=== PATIENT | male | born 1985 | race African-American/Black ===

== ENCOUNTER 2016-11-20 09:26 | Emergency (ER) | payer OTHER ==
--- NOTE | 2016-11-20 11:11 | ER Document Report ---
ED General - General Chief Complaint: Abdominal Pain Stated Complaint: ABDOMINAL PAIN Mode of Arrival: Ambulatory Information source: Patient TRAVEL OUTSIDE OF THE [place] IN LAST 30 DAYS: No - HPI Notes: Patient presents with report of recurrence of a discharge and some pain through the right inguinal region. He reports a history of a right inguinal hernia surgical repair last year with Dr. Chapman. Patient denies any fever or chills or nausea or vomiting. No dysuria. - Related Data Allergies/Adverse Reactions: No Known Allergies Allergy (Verified 11/20/16 09:32) Past Medical History - Social History Smoking Status: Current Every Day Smoker Chew tobacco use (# tins/day): No Frequency of alcohol use: Occasional Drug Abuse: None Family History: Reviewed & Not Pertinent Patient has suicidal ideation: No Patient has homicidal ideation: No Pulmonary Medical History: Reports: Hx COPD, Hx Pneumonia Endocrine Medical History: Denies: Hx Diabetes Mellitus Type 2 Renal/ Medical History: Denies: Hx Peritoneal Dialysis GI Medical History: Denies: Hx Gastritis, Hx Gastroesophageal Reflux Disease - Immunizations Hx Diphtheria, Pertussis, Tetanus Vaccination: Yes Review of Systems - Review of Systems Notes: REVIEW OF SYSTEMS: CONSTITUTIONAL : Denies fever, chills, or sweats. Denies recent illness. EENT: Denies eye, ear, throat, or mouth pain or symptoms. Denies nasal or sinus congestion or discharge. Denies throat, tongue, or mouth swelling or difficulty swallowing. CARDIOVASCULAR: Denies chest pain. Denies palpitations or racing or irregular heart beat. Denies ankle edema. RESPIRATORY: Denies cough, cold, or chest congestion. Denies shortness of breath, difficulty breathing, or wheezing. GASTROINTESTINAL: No diarrhea. Denies blood in vomitus, stools, or per rectum. Denies black, tarry stools. Denies constipation. Patient had nausea and vomited twice without blood. He describes the pain as right inguinal location with bulging. GENITOURINARY: Denies difficulty urinating, painful urination, burning, frequency, blood in urine, or discharge. MUSCULOSKELETAL: Denies back or neck pain or stiffness. Denies joint pain or swelling. SKIN: Denies rash, lesions or sores. HEMATOLOGIC : Denies easy bruising or bleeding. LYMPHATIC: Denies swollen, enlarged glands. NEUROLOGICAL: Denies confusion or altered mental status. Denies passing out or loss of consciousness. Denies dizziness or lightheadedness. Denies headache. Denies weakness or paralysis or loss of use of either side. Denies problems with gait or speech. Denies sensory loss, numbness, or tingling. Denies seizures. PSYCHIATRIC: Denies anxiety or stress. Denies depression, suicidal ideation, or homicidal ideation. ALL OTHER SYSTEMS REVIEWED AND NEGATIVE. Dictation was performed using peerTransfer voice recognition software Physical Exam - Vital signs Vitals: Temp Pulse Resp BP Pulse Ox 98 F 20 L 20 114/81 99 11/20/16 09:33 11/20/16 09:33 11/20/16 09:33 11/20/16 09:33 11/20/16 09:33 - Notes Notes: PHYSICAL EXAMINATION: GENERAL: Well-appearing, well-nourished and in no acute distress. HEAD: Atraumatic, normocephalic. EYES: Left corneal opacification chronic from old injury, extraocular movements intact, sclera anicteric, conjunctiva are normal. ENT: Nares patent, oropharynx clear without exudates. Moist mucous membranes. NECK: Normal range of motion, supple without lymphadenopathy LUNGS: Breath sounds clear to auscultation bilaterally and equal. No wheezes rales or rhonchi. HEART: Regular rate and rhythm without murmurs ABDOMEN: Tender through the right inguinal fold where there appears to be a indirect hernia with some bulging. This was easily reduced on exam with the patient laying down flat and his pain subsided after reduction. Genitourinary exam: No testicular torsion or mass or testicular tenderness. Musculoskeletal: Normal range of motion, no pitting or edema. No cyanosis. NEUROLOGICAL: Cranial nerves grossly intact. Normal speech, normal gait. Normal sensory, motor exams PSYCH: Normal mood, normal affect. SKIN: Warm, Dry, normal turgor, no rashes or lesions noted. Course - Re-evaluation Re-evalutation: 11/20/16 11:08 Repeat evaluation no recurrence of hernia. No pain. No further nausea. Discussion was undertaken with Dr. Chapman who agreed to see the pt in clinic for f/u. 11/20/16 11:09 - Vital Signs Vital signs: Temp Pulse Resp BP Pulse Ox 98 F 20 L 20 114/81 99 11/20/16 09:33 11/20/16 09:33 11/20/16 09:33 11/20/16 09:33 11/20/16 09:33 Discharge - Discharge Clinical Impression: Recurrent inguinal hernia of left side without obstruction or gangrene Condition: Stable Disposition: HOME, SELF-CARE Instructions: Abdominal Pain ([facility]) Additional Instructions: If hernia recurs, then laid down and gently push the hernia back in until pain is resolved. If you're unable to reduce the hernia back into the location and resolved the pain, then you need to come in to the emergency department immediately. Prescriptions: Hydrocodone/Acetaminophen [Cabot 5-325 Tablet] 1 each PO Q4HP PRN #20 tablet PRN Reason: Ondansetron [Zofran Odt 4 mg Tablet] 1 - 2 tab PO Q8HP PRN #10 tab.rapdis PRN Reason: For Nausea/Vomiting Naproxen [Naprosyn 375 Mg Tablet] 375 mg PO BIDP PRN #30 tablet PRN Reason: Forms: Return to Work, Special Work Note Referrals: MONTY CHAPMAN MD [ACTIVE STAFF] - Follow up as needed
[2016-11-20 11:56] VITALS: BP 117/79
== END 2016-11-20 11:40 | disposition home or self-care (01) ==
LOC: ER 09:26
DX: K40.41 Unilateral inguinal hernia, with gangrene, recurrent (principal); F17.200 Nicotine dependence, unspecified, uncomplicated; J44.9 Chronic obstructive pulmonary disease, unspecified
CPT/HCPCS: 99283

== ENCOUNTER 2018-05-07 11:25 | Emergency (ER) | payer SELFPAY ==
--- NOTE | 2018-05-07 12:44 | ER Document Report ---
ED GI/ - General Chief Complaint: Groin Pain Stated Complaint: RIGHT GROIN PAIN Time Seen by Provider: 05/07/18 12:44 Mode of Arrival: Medic Information source: Law Enforcement Notes: 32-year-old male came in by EMS from work after having a hard on reducible right inguinal hernia between 8 and 11 or so at work today after lifting 40 pounds to put it on a shelf. It was bulging prior to the lifting because he strained to have a bowel movement. It is now back to normal. He was given fentanyl IV on the ambulance. He is seen Dr. Chapman in the past and since it was not strangulated it was an elective surgery and is trying to work as much as he can so he can get the weeks off in order to get the surgery. TRAVEL OUTSIDE OF THE [place] IN LAST 30 DAYS: No - Related Data Allergies/Adverse Reactions: No Known Allergies Allergy (Verified 05/07/18 11:28) Past Medical History - General Information source: Patient - Social History Smoking Status: Current Every Day Smoker Chew tobacco use (# tins/day): No Frequency of alcohol use: Occasional Drug Abuse: None Lives with: Family Family History: Reviewed & Not Pertinent Patient has suicidal ideation: No Patient has homicidal ideation: No Pulmonary Medical History: Reports: Hx COPD, Hx Pneumonia GI Medical History: Reports: Other - Right inguinal hernia Surgical Hx: Negative - Immunizations Hx Diphtheria, Pertussis, Tetanus Vaccination: Yes Review of Systems - Review of Systems Constitutional: No symptoms reported EENT: No symptoms reported Cardiovascular: No symptoms reported Respiratory: No symptoms reported Gastrointestinal: See HPI Genitourinary: No symptoms reported Male Genitourinary: No symptoms reported Musculoskeletal: No symptoms reported Skin: No symptoms reported Hematologic/Lymphatic: No symptoms reported Neurological/Psychological: No symptoms reported Physical Exam - Vital signs Vitals: Temp Pulse Resp BP Pulse Ox 97.8 F 58 L 16 127/89 H 96 05/07/18 11:32 05/07/18 11:32 05/07/18 11:32 05/07/18 11:32 05/07/18 11:32 Interpretation: Normal - General General appearance: Appears well, Alert - HEENT Head: Normocephalic, Atraumatic Eyes: Normal Pupils: PERRL - Respiratory Respiratory status: No respiratory distress Chest status: Nontender Breath sounds: Normal Chest palpation: Normal - Cardiovascular Rhythm: Regular Heart sounds: Normal auscultation Murmur: No - Abdominal Inspection: Normal Distension: No distension Bowel sounds: Normal Tenderness: Tender - Minimal tender over reducible soft right inguinal hernia. Active bowel sounds. I had him stand at the bedside and there was no increase in the bulge. Organomegaly: No organomegaly - Back Back: Normal, Nontender - Extremities General upper extremity: Normal inspection, Nontender, Normal color, Normal ROM , Normal temperature General lower extremity: Normal inspection, Nontender, Normal color, Normal ROM , Normal temperature, Normal weight bearing. No: Julia's sign - Neurological Neuro grossly intact: Yes Cognition: Normal Orientation: AAOx4 [place] Coma Scale Eye Opening: Spontaneous [place] Coma Scale Verbal: Oriented [place] Coma Scale Motor: Obeys Commands [place] Coma Scale Total: 15 Speech: Normal Motor strength normal: LUE, RUE, LLE, RLE Sensory: Normal - Psychological Associated symptoms: Normal affect, Normal mood - Skin Skin Temperature: Warm Skin Moisture: Dry Skin Color: Normal Course - Vital Signs Vital signs: Temp Pulse Resp BP Pulse Ox 97.8 F 58 L 16 127/89 H 96 05/07/18 11:32 05/07/18 11:32 05/07/18 11:32 05/07/18 11:32 05/07/18 11:32 Discharge - Discharge Clinical Impression: Reducible right inguinal hernia Condition: Good Disposition: HOME, SELF-CARE Instructions: Hernia ([facility]) Additional Instructions: Call and schedule appointment with Dr. Chapman since she had this episode of hernia pain and inability to reduce while you are at work Return to the emergency room for increased pain, hernia bulging that gets hard and will not go back in, fever, any concerns at all Wear the compressive Gilberto bandage and padding to help keep it reduced Referrals: MONTY CHAPMAN MD [Primary Care Provider] - Follow up tomorrow
[2018-05-07 13:30] VITALS: BP 125/82
== END 2018-05-07 13:29 | disposition home or self-care (01) ==
LOC: ER 11:25
DX: K40.90 Unilateral inguinal hernia, without obstruction or gangrene, not specified as recurrent (principal); J44.9 Chronic obstructive pulmonary disease, unspecified; F17.200 Nicotine dependence, unspecified, uncomplicated
CPT/HCPCS: 99283

== ENCOUNTER 2018-08-16 07:56 | Day surgery (SDC) | payer BC ==
[~2018-08-16 07:56] MED LIST: ACETAMINOPHEN 1,000 MG/100 ML RTUPB IV ONE; BUPIVACAINE HCL 0.25 % INJ/PF (2.5 MG/1 ML) 30 ML VIAL ONE; CEFAZOLIN SODIUM 2 GM in DEXTROSE 5%-WATER 100 ML IV PRN; DEXAMETHASONE SOD PHOSPHATE INJ 4 MG/1 ML VIAL ONE; FENTANYL CITRATE INJ/PF 100 MCG/2 ML AMPUL ONE; IBUPROFEN 800 MG in NORMAL SALINE 250 ML IV PRN; LIDOCAINE 2% INJ-PF (20 MG/ML) 10 ML AMPUL ONE; MIDAZOLAM 2 MG/2 ML INJ ONE; ONDANSETRON HCL INJ/PF 4 MG/2 ML SDV ONE; PROPOFOL INJ 200 MG/20 ML VIAL IV ONE
[2018-08-16] MEDS ORDERED: CEFAZOLIN 2 GM/D5W RTU 2 GM/50 ML RTUPB IV ONE (08:10)
[2018-08-16] MEDS ORDERED: SUCCINYLCHOLINE CHLORIDE INJ 200 MG/10 ML VIAL ONE (08:17)
[2018-08-16] MEDS ORDERED: NEOSTIGMINE METHYLSULFATE 10 MG/10 ML VIAL ONE (08:17)
[2018-08-16] MEDS ORDERED: GLYCOPYRROLATE 1 MG/5 ML SYRINGE ONE (08:17)
[2018-08-16] MEDS ORDERED: ROCURONIUM BROMIDE INJ 50 MG/5 ML VIAL IV ONE (08:17)
[2018-08-16] MEDS ORDERED: ALBUTEROL SULFATE 0.083% NEB 2.5 MG/3 ML AMPUL NEB ONE (08:34)
[2018-08-16 09:07] LABS: HEMATOCRIT 41.6 % (37.9-51.0); HEMOGLOBIN 14.4 g/dL (13.5-17.0); MEAN CORPUSCULAR HEMOGLOBIN 32.5 pg (27.0-33.4); MEAN CORPUSCULAR HGB CONC 34.7 g/dL (32.0-36.0); MEAN CORPUSCULAR VOLUME 94 fl (80-97); PLATELET COUNT 189 10^3/uL (150-450); RED BLOOD COUNT 4.43 10^6/uL (4.35-5.55); RED CELL DISTRIBUTION WIDTH 14.4 % (11.5-14.0); WHITE BLOOD COUNT 5.6 10^3/uL (4.0-10.5)
[2018-08-16 09:11] LABS: ANION GAP 9 (5-19); BLOOD UREA NITROGEN 12 mg/dL (7-20); CALCIUM 9.1 mg/dL (8.4-10.2); CARBON DIOXIDE 29 mmol/L (22-30); CHLORIDE 105 mmol/L (98-107); GLUCOSE 101 mg/dL (75-110); SODIUM 142.7 mmol/L (137-145)
[2018-08-16] MEDS ORDERED: DIPHENHYDRAMINE HCL 50 MG/ML VIAL IV PRN ×2 (11:03→14:28)
[2018-08-16] MEDS ORDERED: FENTANYL CITRATE INJ/PF 100 MCG/2 ML AMPUL IV PRN ×5 (11:03→14:28)
[2018-08-16] MEDS ORDERED: MORPHINE SULFATE 10 MG/ML INJ IV PRN ×2 (11:03→14:28)
[2018-08-16] MEDS ORDERED: PROMETHAZINE HCL INJ 25 MG/1 ML VIAL IV PRN ×4 (11:03→14:28)
[2018-08-16] MEDS ORDERED: ONDANSETRON HCL INJ/PF 4 MG/2 ML SDV IV PRN ×2 (11:03→14:28)
[2018-08-16] MEDS ORDERED: MEPERIDINE HCL/PF INJ 25 MG/1 ML DISP.SYRIN IV PRN ×2 (11:03→14:28)
[2018-08-16] MEDS ORDERED: METOCLOPRAMIDE HCL INJ/PF 10 MG/2 ML SDV ONE (14:36)
[2018-08-16] MEDS ORDERED: FENTANYL CITRATE INJ/PF 100 MCG/2 ML AMPUL ONE (14:49)
[2018-08-16] MEDS: FENTANYL CITRATE INJ/PF 100 MCG/2 ML AMPUL IV PRN ×2 (14:50→15:00)
--- NOTE | 2018-08-16 15:53 | Discharge Summary ---
Discharge Summary ([facility]) - Discharge Final Diagnosis: #1 Amyand and hernia. #2 indirect left inguinal hernia Date of Surgery: 08/16/18 Discharge Date: 08/16/18 Condition: Stable Treatment or Instructions: Discharge home. Diet as tolerated. Activity: No lifting greater than 10 pounds x 4 weeks. Follow-up with me in 7-10 days. Alexander 10/325 mg p.o. every 6 hours as needed for pain. Okay to shower on Sunday. No tub baths times 2 weeks. Discharge Diet: As Tolerated Respiratory Treatments at Home: Deep Breathing/Coughing, Incentive Spirometer Discharge Activity: No Lifting Over 10 Pounds Home Care Assistance: None Needed Report the Following to Your Physician Immediately: Shortness of Breath, Nausea , Vomiting, Increase in Pain, Fever over 101 Degrees, Unusual Bleeding, Redness
--- NOTE | 2018-08-16 16:14 | Operative Report ---
Nonrecallable Operative Report DATE OF SURGERY: 08/16/18 PREOPERATIVE DIAGNOSIS: Bilateral inguinal hernia. POSTOPERATIVE DIAGNOSIS: 1. Amyand hernia on the right. 2. Indirect left inguinal hernia. OPERATION: 1. Robot-assisted bilateral laparoscopic inguinal hernia repair with mesh. 2. Robot-assisted laparoscopic appendectomy. SURGEON: ILIANA PARKER 1ST RESIDENTIAL FINISH CARPENTER: MARSHA SCHULTE ANESTHESIA: GA TISSUE REMOVED OR ALTERED: Appendix COMPLICATIONS: Appendix involved within an indirect right inguinal hernia, necessitating removal of the appendix. ESTIMATED BLOOD LOSS: Minimal PROCEDURE: Drains/implants: Right and left large 3 DMax inguinal hernia mesh. Procedure in detail: After informed consent was obtained, the patient was brought into the operating room and laid in the supine position. The area of the abdomen was prepped and draped in a normal sterile fashion. A supraumbilical incision was created with a 15 blade scalpel, approximately 2 fingerbreadths above the umbilicus. Dissection was carried through the subcutaneous tissue using sharp and blunt means. The linea alba fascia was incised sharply, the abdomen was entered sharply. The balloon trocar was inserted, and pneumoperitoneum was achieved. 2 8 mm robotic trochars were placed in the right and left abdominal wall under direct laparoscopic visualization. The robot was then brought over the patient and docked appropriately. I then assumed my position at the surgeon's console. Attention was turned to the right groin. There was an indirect inguinal hernia defect present. An incision in the peritoneum was created 2-3 cm superior to the right inguinal hernia defect. Dissection was carried down through the preperitoneal space using sharp dissection, blunt dissection, and electrocautery. There was a dense inflammatory reaction present around the hernia sac. Dissection was very difficult. During the course of the dissection the appendix was noted to be densely adherent and intimately involved with the hernia sac. The hernia sac and appendix were completely freed from the cord structures. The appendix was then returned to the abdominal cavity. The appendix was not opened during this maneuver. Once the hernia sac was freed, a large right inguinal hernia mesh was placed into the abdomen. It was situated in the preperitoneal space. It was sutured medially and superiorly using 2-0 Vicryl suture in simple interrupted fashion. Once this was completed, the peritoneum was closed using 2-0 V lock suture in simple running fashion. Attention was then turned to the left groin. Peritoneum above the left inguinal hernia defect was opened, approximately 2-3 cm superior to the defect. Dissection was carried out in the preperitoneal space using sharp dissection, blunt dissection, and electrocautery. The hernia sac was freed from the cord structures, taking great care not to injure the cord structures. A large lipoma of the cord was reduced into the abdomen. Next , a large left-sided 3 DMax inguinal hernia mesh was placed into the preperitoneal space. It was situated over the defect, and sutured medially and superiorly. This was done with 2-0 Vicryl suture. Next, the peritoneum was sutured closed using 2-0 V lock suture in simple running fashion. Next, attention was turned to examination of the appendix. The appendix was not obviously perforated, but had several serosal tears. I was concerned for the viability of the appendix. Secondary to this, the mesoappendix was taken down bluntly. Hem-o-clementine clips were used to ligate the appendiceal artery. The appendix was then dissected free of the surrounding tissues using blunt dissection. A Hem-o-clementine clip was used at the base of the appendix. The appendix was then amputated using robotic scissors. The stump was cauterized. The robot was then undocked, and I scrubbed back into the case. Using laparoscopic instruments the appendix was placed into an Endo Catch bag and pulled out through the umbilicus. A PDS Endoloop was secured beneath the Hem-o-clementine clip at the base of the appendix. The right lower quadrant was free of any bleeding. The appendiceal stump appeared to be in good order. Next the trochars were removed, and pneumoperitoneum was relieved. The supraumbilical fascia was closed using 0 Vicryl suture in [id number] fashion. The overlying skin was closed using 4-0 Vicryl Rapide suture in subcuticular fashion. Dressings were placed, and the procedure was concluded. All sponge, instrument, and needle counts were correct x2. Addition: Stable. Marsha Schulte PA-C was scrubbed and present for the procedure. She assisted with all portions of the procedure, including insertion of the trochars, docking of the robot, changing of the robotic instruments, insertion of the mesh.
[2018-08-16 16:51] VITALS: BP 122/79
== END 2018-08-16 16:55 | disposition home or self-care (01) ==
LOC: OROUT 07:56 → EDBD 10:00 → OROUT 16:55
PROVIDERS: ATTEND Surgery
DX: K40.20 Bilateral inguinal hernia, without obstruction or gangrene, not specified as recurrent (principal); F17.210 Nicotine dependence, cigarettes, uncomplicated
CPT/HCPCS: 49650; S2900; 36415; 80048; 840; 85027; 86850; 86900; 86901; 88304; C1781; J0131; J0330; J0690; J1100; J1741; J2250; J2405; J2704; J2765; J3010; J3490; J7050

== ENCOUNTER 2019-05-23 10:29 | Emergency (ER) | payer BC ==
--- NOTE | 2019-05-23 11:27 | ER Document Report ---
ED Medical Screen (RME) - General Chief Complaint: Abdominal Pain Stated Complaint: ABDOMINAL PAIN Time Seen by Provider: 05/23/19 11:22 Mode of Arrival: Ambulatory Information source: Patient Notes: 26-year-old male presented to ED for abdominal pain just above his bellybutton. He states that he had an an umbilical hernia repair in July and this started this morning. He states he had nausea this morning but none at this time. He has a new hernia that is reducible at this time. He states the pain is still there even after I have reduced the hernia. Patient is alert oriented resp irations regular and unlabored speaking in full sentences. I have greeted and performed a rapid initial assessment of this patient. A comprehensive ED assessment and evaluation of the patient, analysis of test results and completion of medical decision making process will be conducted by an additional ED providers. TRAVEL OUTSIDE OF THE [place] IN LAST 30 DAYS: No - Related Data Allergies/Adverse Reactions: No Known Allergies Allergy (Verified 05/23/19 10:36) Past Medical History - Past Medical History Cardiac Medical History: Denies: Hx Coronary Artery Disease, Hx Heart Attack, Hx Hypertension Pulmonary Medical History: Denies: Hx Asthma, Hx Bronchitis, Hx COPD, Hx Pneumonia Neurological Medical History: Denies: Hx Cerebrovascular Accident, Hx Seizures Endocrine Medical History: Denies: Hx Diabetes Mellitus Type 2 Renal/ Medical History: Denies: Hx Peritoneal Dialysis GI Medical History: Denies: Hx Gastritis, Hx Gastroesophageal Reflux Disease Musculoskeltal Medical History: Denies Hx Arthritis - Immunizations Hx Diphtheria, Pertussis, Tetanus Vaccination: No History of Influenza Vaccine for 06/2017 - 11/2017 Season: No Physical Exam - Vital signs Vitals: Temp Pulse Resp BP Pulse Ox 97.9 F 103 H 16 124/81 98 05/23/19 10:48 05/23/19 10:48 05/23/19 10:48 05/23/19 10:48 05/23/19 10:48 Course - Vital Signs Vital signs: Temp Pulse Resp BP Pulse Ox 97.9 F 103 H 16 124/81 98 05/23/19 10:48 05/23/19 10:48 05/23/19 10:48 05/23/19 10:48 05/23/19 10:48
[2019-05-23 11:50] LABS: APPEARANCE,URINE SLIGHTLY-CLOUDY; BILIRUBIN,URINE NEGATIVE (NEGATIVE); COLOR,URINE YELLOW; GLUCOSE, URINE NEGATIVE (NEGATIVE); KETONES,URINE NEGATIVE (NEGATIVE); LEUKOCYTE ESTERASE,URINE NEGATIVE (NEGATIVE); NITRITE,URINE NEGATIVE (NEGATIVE); PROTEIN,URINE NEGATIVE (NEGATIVE); URINE SPECIFIC GRAVITY 1.011; UROBILINOGEN,URINE NEGATIVE mg/dL (<2.0)
--- NOTE | 2019-05-23 12:45 | ER Document Report ---
ED General - General Chief Complaint: Abdominal Pain Stated Complaint: ABDOMINAL PAIN Time Seen by Provider: 05/23/19 11:22 Mode of Arrival: Ambulatory TRAVEL OUTSIDE OF THE [place] IN LAST 30 DAYS: No - HPI Notes: 46 y/o w/ abdominal pain has a h/o abdominal wall hernia repaired last year no nausea/vomiting moving bowels normally he thinks his hernia returned - Related Data Allergies/Adverse Reactions: No Known Allergies Allergy (Verified 05/23/19 10:36) Past Medical History - General Information source: Patient - Social History Smoking Status: Current Every Day Smoker Frequency of alcohol use: Social Drug Abuse: None Family History: Reviewed & Not Pertinent Patient has suicidal ideation: No Patient has homicidal ideation: No - Past Medical History Cardiac Medical History: Denies: Hx Coronary Artery Disease, Hx Heart Attack, Hx Hypertension Pulmonary Medical History: Denies: Hx Asthma, Hx Bronchitis, Hx COPD, Hx Pneumonia Neurological Medical History: Denies: Hx Cerebrovascular Accident, Hx Seizures Endocrine Medical History: Denies: Hx Diabetes Mellitus Type 2 Renal/ Medical History: Denies: Hx Peritoneal Dialysis GI Medical History: Denies: Hx Gastritis, Hx Gastroesophageal Reflux Disease Musculoskeletal Medical History: Denies Hx Arthritis Past Surgical History: Reports: Hx Abdominal Surgery - Hernia repair - Immunizations Hx Diphtheria, Pertussis, Tetanus Vaccination: No Review of Systems - Review of Systems Constitutional: No symptoms reported EENT: No symptoms reported Cardiovascular: No symptoms reported Respiratory: No symptoms reported Gastrointestinal: Abdominal pain. denies: Nausea, Vomiting, Constipation Genitourinary: No symptoms reported Male Genitourinary: No symptoms reported Musculoskeletal: No symptoms reported Skin: No symptoms reported Hematologic/Lymphatic: No symptoms reported Neurological/Psychological: No symptoms reported Physical Exam - Vital signs Vitals: Temp Pulse Resp BP Pulse Ox 97.9 F 103 H 16 124/81 98 05/23/19 10:48 05/23/19 10:48 05/23/19 10:48 05/23/19 10:48 05/23/19 10:48 Interpretation: Normal - General General appearance: Appears well, Alert - HEENT Head: Normocephalic, Atraumatic Eyes: Normal Pupils: PERRL - Respiratory Respiratory status: No respiratory distress Chest status: Nontender Breath sounds: Normal Chest palpation: Normal - Cardiovascular Rhythm: Regular Heart sounds: Normal auscultation Murmur: No - Abdominal Inspection: Normal Distension: No distension Bowel sounds: Normal Tenderness: Nontender Organomegaly: No organomegaly Notes: easily reducible hernia in midline of abdomen - Back Back: Normal, Nontender - Extremities General upper extremity: Normal inspection, Nontender, Normal color, Normal ROM, Normal temperature General lower extremity: Normal inspection, Nontender, Normal color, Normal ROM, Normal temperature, Normal weight bearing. No: Julia's sign - Neurological Neuro grossly intact: Yes Cognition: Normal Orientation: AAOx4 [place] Coma Scale Eye Opening: Spontaneous [place] Coma Scale Verbal: Oriented [place] Coma Scale Motor: Obeys Commands [place] Coma Scale Total: 15 Speech: Normal Motor strength normal: LUE, RUE, LLE, RLE Sensory: Normal - Psychological Associated symptoms: Normal affect, Normal mood - Skin Skin Temperature: Warm Skin Moisture: Dry Skin Color: Normal Course - Re-evaluation Re-evalutation: 05/23/19 12:43 easily reducible hernia he needs outpt surgical follow up - Vital Signs Vital signs: Temp Pulse Resp BP Pulse Ox 97.9 F 103 H 16 124/81 98 05/23/19 10:48 05/23/19 10:48 05/23/19 10:48 05/23/19 10:48 05/23/19 10:48 - Laboratory Laboratory results interpreted by me: 05/23/19 11:30 Urine Blood SMALL H Discharge - Discharge Clinical Impression: Hernia Condition: Stable Disposition: HOME, SELF-CARE Instructions: Hernia ([facility]) Additional Instructions: follow up with your surgeon return to ED with worsening Referrals: MONTY ROBLES MD [ACTIVE STAFF] - Follow up as needed
[2019-05-23 13:11] VITALS: BP 125/75
== END 2019-05-23 13:10 | disposition home or self-care (01) ==
LOC: ER 10:29
DX: K46.9 Unspecified abdominal hernia without obstruction or gangrene (principal); R10.9 Unspecified abdominal pain; F17.200 Nicotine dependence, unspecified, uncomplicated; Z87.19 Personal history of other diseases of the digestive system
CPT/HCPCS: 81001; 99283

== ENCOUNTER 2020-02-08 23:18 | Emergency (ER) | payer BC ==
--- NOTE | 2020-02-09 | ER Document Report ---
ED Medical Screen (RME) - General Chief Complaint: Abdominal Pain Stated Complaint: LOWER ABDOMINAL PAIN Time Seen by Provider: 02/08/20 23:55 Mode of Arrival: Ambulatory Information source: Patient Notes: Patient is a 46-year-old male comes emergency room complaining of abdominal pain. Patient states that in 2018 he had a abdominal hernia repair by Dr. Chapman and was doing fine with that until last 4 months he started noticing increased pain and discomfort in the generalized area. He has not followed back up with him yet. He does a lot of heavy lifting at work and the pain is gotten to the point where he cannot stand it anymore. He is not had any problems with bowel movements or had any nausea or vomiting no fevers no diarrhea no constipation just amount of discomfort and pain hurts to walk hurts to touch it now. Physical examination: Patient is a well-nourished well-developed 46-year-old male no apparent distress on physical exam this morning however he does appear to be uncomfortable. Lungs: Bilateral breath sounds with breath sounds clear to auscultation. Cardiac: Regular rate and rhythm no new murmurs. Abdomen: Examination patient's abdomen shows that he has moderate tenderness just above the umbilicus and below the umbilicus. There is no overt hernia seen. Nothing that would signal a am incarceration or strangulation from visualization. . We will go ahead and do labs and CT with IV contrast of the abdomen and pelvis. I have greeted and performed a rapid initial assessment of this patient. A comprehensive ED assessment evaluation of the patient, analysis and test results and completion of the medical decision-making process will be conducted by an additional ED provider. TRAVEL OUTSIDE OF THE [place] IN LAST 30 DAYS: No - Related Data Allergies/Adverse Reactions: No Known Allergies Allergy (Verified 02/08/20 23:50) Past Medical History - Past Medical History Cardiac Medical History: Denies: Hx Coronary Artery Disease, Hx Heart Attack, Hx Hypertension Pulmonary Medical History: Denies: Hx Asthma, Hx Bronchitis, Hx COPD, Hx Pneumonia Neurological Medical History: Denies: Hx Cerebrovascular Accident, Hx Seizures Endocrine Medical History: Denies: Hx Diabetes Mellitus Type 2 Renal/ Medical History: Denies: Hx Peritoneal Dialysis GI Medical History: Denies: Hx Gastritis, Hx Gastroesophageal Reflux Disease Musculoskeltal Medical History: Denies Hx Arthritis Past Surgical History: Reports: Hx Abdominal Surgery - Hernia repair - Immunizations Hx Diphtheria, Pertussis, Tetanus Vaccination: No Physical Exam - Vital signs Vitals: Temp Pulse Resp BP Pulse Ox 98.6 F 82 17 129/67 H 95 02/08/20 23:37 02/08/20 23:37 02/08/20 23:37 02/08/20 23:37 02/08/20 23:37 Course - Vital Signs Vital signs: Temp Pulse Resp BP Pulse Ox 98.6 F 82 17 129/67 H 95 02/08/20 23:37 02/08/20 23:37 02/08/20 23:37 02/08/20 23:37 02/08/20 23:37
[2020-02-09 00:28] LABS: ABSOLUTE BASOPHILS # (AUTO) 0.1 10^3/uL (0.0-0.2); ABSOLUTE EOSINOPHILS # (AUTO) 0.4 10^3/uL (0.0-0.6); ABSOLUTE MONOCYTES (AUTO) 0.7 10^3/uL (0.1-1.4); ABSOLUTE NEUT (AUTO) 4.1 10^3/uL (1.7-8.2); BASOPHILS % (AUTO) 1.3 % (0-2); EOSINOPHILS % (AUTO) 4.9 % (0-6); HEMATOCRIT 39.3 % (37.9-51.0); HEMOGLOBIN 13.9 g/dL (13.5-17.0); LYMPHOCYTES % (AUTO) 28.2 % (13-45); MEAN CORPUSCULAR HEMOGLOBIN 33.5 pg (27.0-33.4); MEAN CORPUSCULAR HGB CONC 35.4 g/dL (32.0-36.0); MEAN CORPUSCULAR VOLUME 95 fl (80-97); MONOCYTES % (AUTO) 9.4 % (3-13); PLATELET COUNT 225 10^3/uL (150-450); RED BLOOD COUNT 4.16 10^6/uL (4.35-5.55); RED CELL DISTRIBUTION WIDTH 14.9 % (11.5-14.0); SEGMENTED NEUTROPHILS % (AUTO) 56.2 % (42-78); TOTAL CELLS COUNTED % (AUTO) 100 %; WHITE BLOOD COUNT 7.3 10^3/uL (4.0-10.5)
[2020-02-09 00:43] LABS: ALBUMIN 4.3 g/dL (3.5-5.0); ALKALINE PHOSPHATASE 54 U/L (38-126); ANION GAP 6 (5-19); ASPARTATE AMINO TRANSFERASE 21 U/L (17-59); BILIRUBIN,TOTAL 0.3 mg/dL (0.2-1.3); BLOOD UREA NITROGEN 14 mg/dL (7-20); CALCIUM 9.5 mg/dL (8.4-10.2); CARBON DIOXIDE 29 mmol/L (22-30); CHLORIDE 105 mmol/L (98-107); GLUCOSE 98 mg/dL (75-110); POTASSIUM 3.9 mmol/L (3.6-5.0); TOTAL PROTEIN 6.9 g/dL (6.3-8.2)
--- NOTE | 2020-02-09 00:52 | ER Document Report ---
ED GI/ - General Chief Complaint: Abdominal Pain Stated Complaint: LOWER ABDOMINAL PAIN Time Seen by Provider: 02/08/20 23:55 Mode of Arrival: Ambulatory Notes: CHIEF COMPLAINT: Abdominal pain for 4 to 5 months HPI: 46-year-old male presenting to the emergency department complaining of periumbilical abdominal pain over the last 4 to 5 months. States several years ago he had a ventral hernia repair by Dr. Chapman. Has not followed back up with the onset of increasing abdominal discomfort. Has not had vomiting or diarrhea. Has not had fever. ROS: See HPI - all other systems were reviewed and are otherwise negative Constitutional: no fever Eyes: no drainage, no blurred vision ENT: no runny nose, no sore throat Cardiovascular: no chest pain Resp: no SOB, no cough GI: no vomiting, no diarrhea, + abdominal pain : no dysuria Integumentary: no rash Allergy: no hives Musculoskeletal: no extremity pain or swelling Neurological: no numbness/tingling, no weakness MEDICATIONS: I agree with the patient medications as charted by the RN. ALLERGIES: I agree with the allergies as charted by the RN. PAST MEDICAL HISTORY/PAST SURGICAL HISTORY: Reviewed and agree as charted by RN. SOCIAL HISTORY: Reviewed and agree as charted by RN. FAMILY HISTORY: No significant familial comorbid conditions directly related to patient complaint EXAM: Reviewed vital signs as charted by RN. CONSTITUTIONAL: Alert and oriented and responds appropriately to questions. Well-appearing; well-nourished, mild distress secondary to pain HEAD: Normocephalic; atraumatic EYES: PERRL; Conjunctivae clear, sclerae non-icteric ENT: normal nose; no rhinorrhea; moist mucous membranes; pharynx without lesions noted, no uvula edema or deviation, no tonsillar hypertrophy, phonation normal NECK: Supple without meningismus; non-tender; no cervical lymphadenopathy, no masses CARD: RRR; no murmurs, no clicks, no rubs, no gallops; symmetric distal pulses RESP: Normal chest excursion without splinting or tachypnea; breath sounds clear and equal bilaterally; no wheezes, no rhonchi, no rales, pulse oximetry 98% on room air not hypoxic ABD/GI: Normal bowel sounds; non-distended; soft, there is tenderness around the periumbilical region and over the suprapubic region with slight guarding. No definitive hernia is palpable; no palpable organomegaly or masses. BACK: The back appears normal and is non-tender to palpation, there is no CVA tenderness EXT: Normal ROM in all joints; non-tender to palpation; no cyanosis, no eff usions, no edema SKIN: Normal color for age and race; warm; dry; good turgor; no acute lesions no magnolia NEURO: Moves all extremities equally; Motor and sensory function intact PSYCH: The patient's mood and manner are appropriate. Grooming and personal hygiene are appropriate. MDM: 46-year-old male with suprapubic and periumbilical tenderness over the last 4 to 5 months with history of prior ventral hernia repair. Has been moving bowels. Has not been vomiting. Initial screening labs and CT imaging placed in triage process TRAVEL OUTSIDE OF THE [place] IN LAST 30 DAYS: No - Related Data Allergies/Adverse Reactions: No Known Allergies Allergy (Verified 02/08/20 23:50) Past Medical History - General Information source: Patient - Social History Smoking Status: Current Every Day Smoker Frequency of alcohol use: Social Drug Abuse: None Family History: Reviewed & Not Pertinent Patient has homicidal ideation: No - Past Medical History Cardiac Medical History: Denies: Hx Coronary Artery Disease, Hx Heart Attack, Hx Hypertension Pulmonary Medical History: Denies: Hx Asthma, Hx Bronchitis, Hx COPD, Hx Pneumonia Neurological Medical History: Denies: Hx Cerebrovascular Accident, Hx Seizures Endocrine Medical History: Denies: Hx Diabetes Mellitus Type 2 Renal/ Medical History: Denies: Hx Peritoneal Dialysis GI Medical History: Denies: Hx Gastritis, Hx Gastroesophageal Reflux Disease Musculoskeletal Medical History: Denies Hx Arthritis Past Surgical History: Reports: Hx Abdominal Surgery - Hernia repair - Immunizations Hx Diphtheria, Pertussis, Tetanus Vaccination: No Physical Exam - Vital signs Vitals: Temp Pulse Resp BP Pulse Ox 98.6 F 82 17 129/67 H 95 02/08/20 23:37 02/08/20 23:37 02/08/20 23:37 02/08/20 23:37 02/08/20 23:37 Course - Re-evaluation Re-evalutation: 02/09/20 01:50 CT imaging shows a small ventral and small umbilical hernia. Neither appear to be incarcerated. Discussed with the patient. Will refer back to Dr. Chapman whom he saw previously. He is requesting a work note - Vital Signs Vital signs: Temp Pulse Resp BP Pulse Ox 98.6 F 82 17 129/67 H 95 02/08/20 23:54 02/08/20 23:37 02/08/20 23:37 02/08/20 23:37 02/08/20 23:37 - Laboratory Result Diagrams: 02/09/20 00:10 02/09/20 00:10 Laboratory results interpreted by me: 02/09/20 02/09/20 00:05 00:10 RBC 4.16 L MCH 33.5 H RDW 14.9 H Urine Blood SMALL H Urine Urobilinogen 2.0 H Discharge - Discharge Clinical Impression: Abdominal hernia Qualifiers: Hernia type: ventral Obstruction and gangrene presence: without obstruction or gangrene Qualified Code(s): K43.9 - Ventral hernia without obstruction or gangrene Condition: Stable Disposition: HOME, SELF-CARE Additional Instructions: Follow-up with surgery clinic for further evaluation and treatment of the umbilical and ventral hernias. Pain medications as prescribed. Return for any concerns Prescriptions: Diclofenac Sodium [Voltaren 50 Mg Tablet.Dr] 50 mg PO BID #20 tablet.dr Forms: Return to Work Referrals: MONTY CHAPMAN MD [ACTIVE STAFF] - Follow up as needed
[2020-02-09 01:11] LABS: APPEARANCE,URINE CLEAR; BILIRUBIN,URINE NEGATIVE (NEGATIVE); COLOR,URINE YELLOW; GLUCOSE, URINE NEGATIVE (NEGATIVE); KETONES,URINE NEGATIVE (NEGATIVE); PROTEIN,URINE NEGATIVE (NEGATIVE); URINE SPECIFIC GRAVITY 1.016
--- NOTE | 2020-02-09 01:38 | RADIOLOGY REPORT (SQ) ---
EXAM DESCRIPTION: Contrast-enhanced CT scan of the abdomen and pelvis. CLINICAL HISTORY: 46 years Male; Abdominal pain/abdominal hernia TECHNIQUE: CT of the abdomen and pelvis with intravenous contrast. Delayed imaging of the abdomen and pelvis was also performed. All CT scans at this facility use dose modulation, iterative reconstruction, and/or weight based dosing when appropriate to reduce radiation dose to as low as reasonably achievable. This exam was performed according to our department optimization program which includes automated exposure control, adjustment of the mA and/or kv according to patient size and/or use of iterative reconstruction technique. COMPARISON: CT scan dated 04/16/2014 FINDINGS: Lower chest: Cystic areas are present throughout the lung parenchyma which are nonspecific but more pronounced on today's exam. Heart size is normal. No pleural effusion or pneumothorax. Abdomen: Liver and biliary tree: Mild diffuse fatty infiltration of the liver. The portal vein is patent. No biliary dilatation. The gallbladder small and contracted. Pancreas: Normal Spleen:Within normal limits Kidneys: Kidneys are normal in size, shape and position. No stones. No mass or hydronephrosis. Symmetric renal enhancement. On delayed images there is symmetric contrast excretion and the ureters are unremarkable. Adrenal glands:Within normal limits Vascular structures:Within normal limits Retroperitoneum: No mass or lymphadenopathy Abdominal wall: Just above the umbilicus is a fascial defect in the anterior abdominal wall in the midline which measures 11 mm contains omentum. At the umbilicus there is thinning and attenuation of the abdominal wall fascia and a knuckle of colon extends through the fascial defect. The appearance is similar to the previous exam. There is fullness in the inguinal region bilaterally though no definitive hernia defect. GI: The stomach is distended with ingested material. There is moderate stool in the colon. The bowel is not dilated. No obstruction. Appendix: The appendix is not seen General: No free air. No free fluid Pelvis: Lymph nodes: No mass or lymphadenopathy Bladder: The bladder is empty Pelvis: No pelvic mass or adenopathy. Bones: No acute bone findings. IMPRESSION: 1. Midline ventral abdominal wall hernia containing omentum. 2. Umbilical hernia containing a knuckle of colon without obstruction. 3. Mild diffuse fatty infiltration of the liver. 4. No acute process in the abdomen or pelvis.
[2020-02-09] MEDS ORDERED: HYDROCODONE/ACETAMINOPHEN 5-325 MG TABLET PO ONE (01:52)
[2020-02-09 02:03] VITALS: BP 114/71
== END 2020-02-09 02:05 | disposition home or self-care (01) ==
LOC: ER 23:18
DX: K43.9 Ventral hernia without obstruction or gangrene (principal); K42.9 Umbilical hernia without obstruction or gangrene; R10.33 Periumbilical pain; F17.200 Nicotine dependence, unspecified, uncomplicated; Z98.890 Other specified postprocedural states
CPT/HCPCS: 36415; 74177; 80053; 81001; 83605; 83690; 85025; 99284

== ENCOUNTER 2020-02-13 21:04 | Emergency (ER) | payer BC ==
[2020-02-13 21:10] VITALS: BP 140/86
== END 2020-02-13 21:40 | disposition left against medical advice (07) ==
LOC: ER 21:04
DX: Z53.21 Procedure and treatment not carried out due to patient leaving prior to being seen by health care provider (principal)

== ENCOUNTER 2020-03-31 12:22 | Day surgery (SDC) | payer BC ==
[2020-03-26 10:43] LABS: HEMATOCRIT 46.9 % (37.9-51.0); HEMOGLOBIN 15.9 g/dL (13.5-17.0); MEAN CORPUSCULAR HEMOGLOBIN 32.4 pg (27.0-33.4); MEAN CORPUSCULAR HGB CONC 33.9 g/dL (32.0-36.0); MEAN CORPUSCULAR VOLUME 96 fl (80-97); PLATELET COUNT 197 10^3/uL (150-450); RED CELL DISTRIBUTION WIDTH 14.7 % (11.5-14.0); WHITE BLOOD COUNT 7.2 10^3/uL (4.0-10.5)
[2020-03-26 11:15] LABS: ANION GAP 5 (5-19); BLOOD UREA NITROGEN 14 mg/dL (7-20); CALCIUM 9.2 mg/dL (8.4-10.2); CARBON DIOXIDE 29 mmol/L (22-30); CHLORIDE 105 mmol/L (98-107); GLUCOSE 101 mg/dL (75-110); POTASSIUM 4.5 mmol/L (3.6-5.0)
[~2020-03-31 12:22] MED LIST changes: -ACETAMINOPHEN 1,000 MG/100 ML RTUPB IV ONE; -BUPIVACAINE HCL 0.25 % INJ/PF (2.5 MG/1 ML) 30 ML VIAL ONE; +CEFAZOLIN 1 GM/D5W RTU 1 GM/50 ML RTUPB IV ONE; +CEFAZOLIN 1 GM/D5W RTU 1 GM/50 ML RTUPB IV PRN; -CEFAZOLIN SODIUM 2 GM in DEXTROSE 5%-WATER 100 ML IV PRN; -DEXAMETHASONE SOD PHOSPHATE INJ 4 MG/1 ML VIAL ONE; -FENTANYL CITRATE INJ/PF 100 MCG/2 ML AMPUL ONE; -IBUPROFEN 800 MG in NORMAL SALINE 250 ML IV PRN; +LACTATED RINGERS 1000 ML IV PRN; +LIDOCAINE 0.5% INJ-PF (5 MG/ML) 50 ML SDV SUBCUT PRN; -LIDOCAINE 2% INJ-PF (20 MG/ML) 10 ML AMPUL ONE; -MIDAZOLAM 2 MG/2 ML INJ ONE; -ONDANSETRON HCL INJ/PF 4 MG/2 ML SDV ONE; -PROPOFOL INJ 200 MG/20 ML VIAL IV ONE
[2020-03-31] MEDS ORDERED: MORPHINE SULFATE 10 MG/ML INJ ONE (15:59)
[2020-03-31] MEDS ORDERED: FENTANYL CITRATE INJ/PF 100 MCG/2 ML AMPUL ONE (15:59)
[2020-03-31] MEDS ORDERED: MIDAZOLAM 2 MG/2 ML INJ ONE (15:59)
[2020-03-31] MEDS ORDERED: PROPOFOL INJ 200 MG/20 ML VIAL IV ONE (16:00)
[2020-03-31] MEDS ORDERED: BUPIVACAINE INJ/PF LIPOSOME/PF 266 MG/20 ML SDV ONE (16:23)
[2020-03-31] MEDS ORDERED: BUPIVACAINE HCL 0.25 % INJ/PF (2.5 MG/1 ML) 30 ML VIAL ONE (16:23)
[2020-03-31] MEDS ORDERED: ONDANSETRON HCL INJ/PF 4 MG/2 ML SDV ONE (16:26)
[2020-03-31] MEDS ORDERED: DIPHENHYDRAMINE HCL 50 MG/ML VIAL IV PRN (16:44)
[2020-03-31] MEDS ORDERED: MORPHINE SULFATE 10 MG/ML INJ IV PRN (16:44)
[2020-03-31] MEDS ORDERED: MEPERIDINE HCL/PF INJ 25 MG/1 ML DISP.SYRIN IV PRN (16:44)
[2020-03-31] MEDS ORDERED: ONDANSETRON HCL INJ/PF 4 MG/2 ML SDV IV PRN (16:44)
[2020-03-31] MEDS ORDERED: FENTANYL CITRATE INJ/PF 100 MCG/2 ML AMPUL IV PRN ×3 (16:44)
--- NOTE | 2020-03-31 17:38 | Discharge Summary ---
Discharge Summary (SDC) - Discharge Final Diagnosis: Abdominal hernias in midline Date of Surgery: 03/31/20 Discharge Date: 03/31/20 Condition: Good Treatment or Instructions: Wear abdominal binder when up at all times; may shower in 48 hours: Follow-up with Dr. Chapman in 1/2 weeks at [facility]. Prescription ordered; Prescriptions: Ketorolac Tromethamine [Toradol 10 mg Tablet] 10 mg PO Q6HP PRN #14 tablet PRN Reason: Discharge Diet: Regular Discharge Activity: Other - No heavy lifting pushing pulling anything greater t ludwig 10 pounds. Home Care Assistance: None Needed Report the Following to Your Physician Immediately: Shortness of Breath, Increase in Pain, Fever over 101 Degrees
--- NOTE | 2020-03-31 17:49 | Operative Report ---
Operative Report DATE OF SURGERY: 03/31/20 PREOPERATIVE DIAGNOSIS: 1. Abdominal wall hernia in the midline. 2. History of laparoscopic surgery POSTOPERATIVE DIAGNOSIS: Same with multiple anterior abdominal wall hernias in midline OPERATION: 1. Abdominal wall exploration, with reduction of multiple small abdominal wall hernias. 2. Abdominal wall herniorrhaphy with 6.[address] mesh. 3. Deployment of Exparel in the subcutaneous tissue SURGEON: MONTY ROBLES ANESTHESIA: GA TISSUE REMOVED OR ALTERED: Retroperitoneal fat COMPLICATIONS: None ESTIMATED BLOOD LOSS: Scant INTRAOPERATIVE FINDINGS: See below PROCEDURE: She was taken the preop holding her to the main operating room where general anesthesia was induced. The abdominal wall was exposed, prepped and draped sterile fashion. Surgical plan and surgical timeout were conducted. The abdomen was marked from midline above the umbilicus to include the site of previously defined abdominal wall hernia down to the umbilicus. This also included the previous laparoscopy scar. The skin was anesthetized with quarter percent Marcaine as well as the surrounding tissue. Approximately 7 cm incision was made with a knife. We now proceeded to dissect out the subcutaneous tissue from the underlying fascia. There were multiple small abdominal wall hernias in fact to above the umbilicus, and then a small umbilical hernia at the umbilicus likely unrelated to the previous laparoscopy incision. We extended the midline fascial defect to incorporate both supraumbilical fascial defects. From here I placed a Evelin clamp on the fascia and swept all the retroperitoneal tissue away from the anterior abdominal wall. Using a 0 PDS suture in a [id number] fashion, I closed the small fascial defect of the umbilicus from the inside. I now ensured that the the subcutaneous tissue above the fascia was cleared at the 12, 3, and 6:00 and 9:00 positions. I elected to reinforce this closure with a 6.[address] mesh. The prosthesis brought onto the field after checking the expiration date. 0 PDS sutures were now placed through the fascia from the outside to in, through the mesh and then back up from inside to out on the abdominal wall fascia. This was performed at the 12 3 6, and 9:00 po sitions. I now placed the mesh into the retro-fascial position and pulled up the suture at the respective sites. The mesh sat flush against the anterior abdominal wall from the inside. We now secured the sutures at the 12, 3, 6, 9:00 positions. We now closed the fascia, vertically, with 4 interrupted [id number] sutures using 0 PDS suture, thereby covering the mesh completely. Wound was irrigated check for bleeding and there was none, and wound closed with 2-0 Vicryl, easton. 20 cc of full-strength Exparel was deployed and subcutaneous tissue. Sterile dressing, abdominal binder applied. Patient was taken to the recovery room in stable condition after successful extubation
[2020-03-31] MEDS ORDERED: OXYCODONE-ACETAMINOPHEN 5-325 MG TABLET PO PRN (17:56)
[2020-03-31] MEDS ORDERED: KETOROLAC TROMETHAMINE INJ/PF 30 MG/1 ML SDV IV PRN (17:56)
[2020-03-31] MEDS: FENTANYL CITRATE INJ/PF 100 MCG/2 ML AMPUL ONE ×2 (17:58→18:03)
[2020-03-31] MEDS ORDERED: KETOROLAC TROMETHAMINE INJ/PF 30 MG/1 ML SDV ONE (18:30)
[2020-03-31] MEDS ORDERED: OXYCODONE-ACETAMINOPHEN 5-325 MG TABLET ONE (18:31)
[2020-03-31 19:57] VITALS: BP 133/90
== END 2020-03-31 20:05 | disposition home or self-care (01) ==
LOC: OROUT 12:22
PROVIDERS: ATTEND Surgery
DX: K43.9 Ventral hernia without obstruction or gangrene (principal); F17.210 Nicotine dependence, cigarettes, uncomplicated; Z03.818 Encounter for observation for suspected exposure to other biological agents ruled out
CPT/HCPCS: 49560; 49568; 36415; 85027; 87635; 80048; J2250; J0690; J3010; J1885; J2405; J2704; C9290; C9803; C1781; J2270

== ENCOUNTER 2020-06-12 04:35 | Emergency (ER) | payer BC ==
[2020-06-12] MEDS ORDERED: NORMAL SALINE 1000 ML 1,000 ML IV ONE (07:27)
[2020-06-12] MEDS ORDERED: HYDROMORPHONE HCL INJ/PF 2 MG/ML AMPULE IV ONE (07:28)
[2020-06-12] MEDS ORDERED: ONDANSETRON HCL INJ/PF 4 MG/2 ML SDV IV ONE (07:28)
[2020-06-12 08:27] LABS: ABSOLUTE BASOPHILS # (AUTO) 0.2 10^3/uL (0.0-0.2); ABSOLUTE EOSINOPHILS # (AUTO) 0.7 10^3/uL (0.0-0.6); ABSOLUTE LYMPHOCYTES (AUTO) 2.4 10^3/uL (0.5-4.7); ABSOLUTE MONOCYTES (AUTO) 0.5 10^3/uL (0.1-1.4); ABSOLUTE NEUT (AUTO) 4.5 10^3/uL (1.7-8.2); BASOPHILS % (AUTO) 2.1 % (0-2); EOSINOPHILS % (AUTO) 8.3 % (0-6); HEMATOCRIT 47.7 % (37.9-51.0); HEMOGLOBIN 16.6 g/dL (13.5-17.0); MEAN CORPUSCULAR HGB CONC 34.8 g/dL (32.0-36.0); MEAN CORPUSCULAR VOLUME 95 fl (80-97); MONOCYTES % (AUTO) 5.6 % (3-13); PLATELET COUNT 216 10^3/uL (150-450); RED BLOOD COUNT 5.03 10^6/uL (4.35-5.55); RED CELL DISTRIBUTION WIDTH 14.8 % (11.5-14.0); TOTAL CELLS COUNTED % (AUTO) 100 %; WHITE BLOOD COUNT 8.1 10^3/uL (4.0-10.5)
[2020-06-12 08:48] LABS: ALBUMIN 4.3 g/dL (3.5-5.0); ALKALINE PHOSPHATASE 71 U/L (38-126); ANION GAP 9 (5-19); ASPARTATE AMINO TRANSFERASE 25 U/L (17-59); BILIRUBIN,DIRECT 0.3 mg/dL (0.0-0.4); BILIRUBIN,TOTAL 0.4 mg/dL (0.2-1.3); BLOOD UREA NITROGEN 12 mg/dL (7-20); CALCIUM 9.3 mg/dL (8.4-10.2); CARBON DIOXIDE 27 mmol/L (22-30); CHLORIDE 104 mmol/L (98-107); GLUCOSE 94 mg/dL (75-110); NEONATAL BILIRUBIN RESULT 0.1 mg/dL (0.1-1.1); POTASSIUM 4.4 mmol/L (3.6-5.0); TOTAL PROTEIN 6.8 g/dL (6.3-8.2)
[2020-06-12 08:49] LABS: ALCOHOL < 10 mg/dL (NONE DETECTED)
--- NOTE | 2020-06-12 12:01 | RADIOLOGY REPORT (SQ) ---
EXAM DESCRIPTION: CT ABD/PELVIS WITH IV ORAL IMAGES COMPLETED DATE/TIME: 06/12/2020 10:45 am REASON FOR STUDY: abd pain COMPARISON: 04/16/2014. TECHNIQUE: CT scan of the abdomen and pelvis performed using helical scanning technique with dynamic intravenous contrast injection. No oral contrast. Images reviewed with lung, soft tissue, and bone windows. Reconstructed coronal and sagittal MPR images reviewed. Delayed images for evaluation of the urinary system also acquired. All images stored on PACS. All CT scanners at this facility use dose modulation, iterative reconstruction, and/or weight based d osing when appropriate to reduce radiation dose to as low as reasonably achievable (ALARA). [facility]: Dose Right [facility]: CareDose [facility]: Dose Right [facility]: Teradose 4D [facility]: Xtium CONTRAST TYPE AND DOSE: contrast/concentration: Isovue 350.00 mmol/ml; Total Contrast Delivered: 77. 0 ml; Total Saline Delivered: 66.9 ml RENAL FUNCTION: BUN 12 creatinine 0.87. RADIATION DOSE: CT Rad equipment meets quality standard of care and radiation dose reduction techniq ues were employed. CTDIvol: 4.8 - 5.2 mGy. DLP: 465 mGy-cm.. LIMITATIONS: None. FINDINGS: LOWER CHEST: No significant findings. No nodules or infiltrates. LIVER: Normal size. No masses. No dilated ducts. SPLEEN: Normal size. No focal lesions. PANCREAS: No masses. No significant calcifications. No adjacent inflammation or peripancreatic fluid collections. Pancreatic duct not dilated. GALLBLADDER: No identified stones by CT criteria. No inflammatory changes to suggest cholecystitis. ADRENAL GLANDS: No significant masses or asymmetry. RIGHT KIDNEY AND URETER: No solid masses. No significant calcifications. No hydronephrosis or hyd roureter. LEFT KIDNEY AND URETER: No solid masses. No significant calcifications. No hydronephrosis or hydr oureter. AORTA AND VESSELS: No aneurysm. No dissection. Renal arteries, SMA, celiac without stenosis. RETROPERITONEUM: No retroperitoneal adenopathy, hemorrhage or masses. BOWEL AND PERITONEAL CAVITY: No masses or inflammatory changes. No free fluid or peritoneal masses. APPENDIX: Not visualized. PELVIS: No mass. No free fluid. Normal bladder. ABDOMINAL WALL: No masses. No hernias. BONES: No significant or acute findings. OTHER: No other significant finding. IMPRESSION: NO SIGNIFICANT OR ACUTE FINDING IN THE ABDOMEN OR PELVIS ON CT SCAN WITH IV CONTRAST. TECHNICAL DOCUMENTATION: JOB ID: [id number] Quality ID # [id number]: Final reports with documentation of one or more dose reduction techniques (e.g., Au tomated exposure control, adjustment of the mA and/or kV according to patient size, use of iterative reconstruction technique) 2010 [employer]- All Rights Reserved Reading location - IP/workstation name: [email or web address]
[2020-06-12 13:17] VITALS: BP 137/97
[2020-06-12 13:35] LABS: APPEARANCE,URINE CLEAR; BILIRUBIN,URINE NEGATIVE (NEGATIVE); COLOR,URINE STRAW; GLUCOSE, URINE NEGATIVE (NEGATIVE); KETONES,URINE NEGATIVE (NEGATIVE); LEUKOCYTE ESTERASE,URINE NEGATIVE (NEGATIVE); NITRITE,URINE NEGATIVE (NEGATIVE); PROTEIN,URINE NEGATIVE (NEGATIVE); URINE SPECIFIC GRAVITY 1.033; UROBILINOGEN,URINE NEGATIVE mg/dL (<2.0)
--- NOTE | 2020-06-12 14:21 | ER Document Report ---
Entered by EMERY MILLER SCRIBE 06/12/20 0715 Acting as scribe for:ROBERT ALEXANDRA MD ED GI/ - General Chief Complaint: Abdominal Pain Stated Complaint: ABDMONIAL PAIN Time Seen by Provider: 06/12/20 06:05 Primary Care Provider: MONTY CHAPMAN MD [Primary Care Provider] - Follow up as needed Mode of Arrival: Ambulatory Information source: Patient Notes: This 47 year old male patient presents to the ED today with complaints of sudden onset sharp LLQ abdominal pain that started around 0300 this morning. Patient states that he had an abdominal wall herniorrhaphy without any complications on 03/31/[address] Chapman at [facility]. He reports pain related to the surgery which he has been taking Toradol for, but states that this pain is different. Denies fever, chills, nausea/vomiting/diarrhea, change in bowel or bladder habits. He notes his last meal was yesterday evening. TRAVEL OUTSIDE OF THE [place] IN LAST 30 DAYS: No - Related Data Allergies/Adverse Reactions: No Known Allergies Allergy (Verified 02/08/20 23:50) Home Medications: TORADOL Past Medical History - General Information source: Patient, [facility] Records - Social History Smoking Status: Current Every Day Smoker Chew tobacco use (# tins/day): No Smoking Education Provided: No Frequency of alcohol use: Occasional Drug Abuse: None Lives with: Spouse/Significant other Family History: Reviewed & Not Pertinent Patient has suicidal ideation: No Patient has homicidal ideation: No Past Surgical History: Reports: Hx Herniorrhaphy - Abdominal wall, 03/31/20 - Immunizations Hx Diphtheria, Pertussis, Tetanus Vaccination: No Review of Systems - Review of Systems Constitutional: See HPI. denies: Chills, Fever EENT: No symptoms reported Cardiovascular: No symptoms reported Respiratory: No symptoms reported Gastrointestinal: See HPI, Abdominal pain. denies: Diarrhea, Nausea, Vomiting Genitourinary: No symptoms reported Male Genitourinary: No symptoms reported Musculoskeletal: No symptoms reported Skin: No symptoms reported Hematologic/Lymphatic: No symptoms reported Neurological/Psychological: No symptoms reported -: Yes All other systems reviewed and negative Physical Exam - Vital signs Vitals: Temp 98.2 F 06/12/20 04:45 - General General appearance: Alert In distress: None - HEENT Head: Normocephalic, Atraumatic Eyes: Normal Pupils: PERRL - Respiratory Respiratory status: No respiratory distress Chest status: Nontender Breath sounds: Normal Chest palpation: Normal - Cardiovascular Rhythm: Regular Heart sounds: Normal auscultation Murmur: No Friction rub: No Gallop: None auscultated - Abdominal Inspection: Healed incision - Midline Distension: No distension Bowel sounds: Normal Tenderness: Tender - Mid-gastric tenderness over surgical scar LLQ tenderness to palpation Organomegaly: No organomegaly - Back Back: Normal, Nontender - Extremities General upper extremity: Normal inspection General lower extremity: Normal inspection. No: Edema - Neurological Neuro grossly intact: Yes Orientation: AAOx4 [place] Coma Scale Eye Opening: Spontaneous [place] Coma Scale Verbal: Oriented [place] Coma Scale Motor: Obeys Commands [place] Coma Scale Total: 15 - Psychological Associated symptoms: Normal affect, Normal mood - Skin Skin Temperature: Warm Skin Moisture: Dry Skin Color: Normal Course - Re-evaluation Re-evalutation: 06/12/20 14:19 Patient patient resting comfortably not showing abdominal pain distress at this time. - Vital Signs Vital signs: Temp Pulse Resp BP Pulse Ox 98.1 F 85 15 137/97 H 99 06/12/20 13:00 06/12/20 04:47 06/12/20 13:01 06/12/20 13:00 06/12/20 12:01 06/12/20 14:19 Vital signs stable blood pressure is 137/97 diastolic hypertension. - Laboratory Result Diagrams: 06/12/20 08:10 06/12/20 08:10 Laboratory results interpreted by me: 06/12/20 08:10 RDW 14.8 H Eos % (Auto) 8.3 H Baso % (Auto) 2.1 H Absolute Eos (auto) 0.7 H Laboratories show no significant acute process. - Diagnostic Test Radiology reviewed: Image reviewed, Reports reviewed Radiology results interpreted by me: 06/12/20 14:19 Abdomen/Pelvis CT 06/12/20 00:00 IMPRESSION: NO SIGNIFICANT OR ACUTE FINDING IN THE ABDOMEN OR PELVIS ON CT SCAN WITH IV CONTRAST. CT abdomen and pelvis shows no acute process in abdomen or pelvis on CT scan. There is no obstruction there is no evidence for inflammation and no complication noted from prior surgery. Discharge - Discharge Clinical Impression: Abdominal pain Condition: Stable Disposition: HOME, SELF-CARE Instructions: Abdominal Pain ([facility]) Referrals: MONTY CHAPMAN MD [Primary Care Provider] - Follow up as needed I personally performed the services described in the documentation, reviewed and edited the documentation which was dictated to the scribe in my presence, and it accurately records my words and actions.
== END 2020-06-12 14:40 | disposition home or self-care (01) ==
LOC: ER 04:35
DX: R10.32 Left lower quadrant pain (principal); R10.814 Left lower quadrant abdominal tenderness; F17.200 Nicotine dependence, unspecified, uncomplicated; I10 Essential (primary) hypertension; Z98.890 Other specified postprocedural states; Z79.899 Other long term (current) drug therapy
CPT/HCPCS: 99285; 96361; 96374; 96375; 36415; 80307; 83605; 83690; 85025; 80053; 81001; 74177; J1170; J2405; J7030